=== PATIENT | female | born 1945 | race Caucasian/White ===

== ENCOUNTER 2016-10-16 05:34 | Day surgery (SDC) | payer MEDICARE, OTHER ==
[2016-10-08 10:48] LABS: ABSOLUTE EOSINOPHILS # (AUTO) 0.1 10^3/uL (0.0-0.6); ABSOLUTE LYMPHOCYTES (AUTO) 2.7 10^3/uL (0.5-4.7); ABSOLUTE MONOCYTES (AUTO) 0.8 10^3/uL (0.1-1.4); ABSOLUTE NEUT (AUTO) 4.5 10^3/uL (1.7-8.2); BASOPHILS % (AUTO) 0.3 % (0-2); EOSINOPHILS % (AUTO) 1.2 % (0-6); HEMATOCRIT 40.8 % (36.0-47.0); HEMOGLOBIN 13.6 g/dL (12.0-15.5); LYMPHOCYTES % (AUTO) 33.4 % (13-45); MEAN CORPUSCULAR HEMOGLOBIN 32.2 pg (27.0-33.4); MEAN CORPUSCULAR HGB CONC 33.4 g/dL (32.0-36.0); MEAN CORPUSCULAR VOLUME 96 fl (80-97); RED BLOOD COUNT 4.24 10^6/uL (3.72-5.28); RED CELL DISTRIBUTION WIDTH 13.3 % (11.5-14.0); SEGMENTED NEUTROPHILS % (AUTO) 55.1 % (42-78); WHITE BLOOD COUNT 8.1 10^3/uL (4.0-10.5)
[2016-10-08 11:23] LABS: ANION GAP 12 (5-19); BLOOD UREA NITROGEN 16 mg/dL (7-20); CALCIUM 10.1 mg/dL (8.4-10.2); CARBON DIOXIDE 27 mmol/L (22-30); CHLORIDE 106 mmol/L (98-107); CREATININE RESULT 1.12 mg/dL (0.52-1.25); GLUCOSE 95 mg/dL (75-110); POTASSIUM 5.6 mmol/L (3.6-5.0); SODIUM 144.5 mmol/L (137-145)
[~2016-10-16 05:34] MED LIST: CEFAZOLIN 2 GM/D5W RTU 2 GM/50 ML RTUPB IV PRN; LACTATED RINGERS 1000 ML IV PRN; LIDOCAINE 0.5% INJ-PF (5 MG/ML) 50 ML SDV SUBCUT PRN
[2016-10-16] MEDS ORDERED: FENTANYL CITRATE INJ/PF 250 MCG/5 ML AMPULE ONE (06:52)
[2016-10-16] MEDS ORDERED: EPHEDRINE SULFATE INJ 50 MG/1 ML AMPULE ONE (06:53)
[2016-10-16] MEDS ORDERED: MIDAZOLAM 2 MG/2 ML INJ ONE (06:53)
[2016-10-16] MEDS ORDERED: PROPOFOL INJ 200 MG/20 ML VIAL IV ONE (06:53)
[2016-10-16] MEDS ORDERED: ACETAMINOPHEN 100 ML IV ONE (06:53)
[2016-10-16] MEDS ORDERED: BUPIVACAINE HCL 0.5 % INJ/PF 30 ML SDV ONE (07:12)
[2016-10-16] MEDS ORDERED: EPINEPHRINE INJ/PF 1 MG/1 ML AMPULE ONE (07:12)
[2016-10-16] MEDS ORDERED: MEPERIDINE HCL/PF INJ 25 MG/1 ML DISP.SYRIN IV PRN (08:40)
[2016-10-16] MEDS ORDERED: DIPHENHYDRAMINE HCL 50 MG/ML VIAL IV PRN (08:40)
[2016-10-16] MEDS ORDERED: FENTANYL CITRATE INJ/PF 100 MCG/2 ML AMPUL IV PRN ×3 (08:40)
[2016-10-16] MEDS ORDERED: MORPHINE SULFATE 10 MG/ML INJ IV PRN (08:40)
[2016-10-16] MEDS ORDERED: OXYCODONE-ACETAMINOPHEN 5-325 MG TABLET PO PRN ×4 (08:40→11:07)
[2016-10-16] MEDS ORDERED: ONDANSETRON HCL INJ/PF 4 MG/2 ML SDV IV PRN (08:40)
[2016-10-16] MEDS ORDERED: PROMETHAZINE HCL INJ 25 MG/1 ML VIAL IV PRN ×2 (08:40)
[2016-10-16] MEDS: FENTANYL CITRATE INJ/PF 100 MCG/2 ML AMPUL ONE ×2 (09:46→09:55)
--- NOTE | 2016-10-16 09:54 | Operative Report ---
Operative Report DATE OF SURGERY: 10/16/16 PREOPERATIVE DIAGNOSIS: Right rotator cuff tear and degenerative type II SLAP tear. 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 Extensive debridement with rotator cuff repair and biceps tenodesis. 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 PROCEDURE: IMPLANTS: 2 4.75 mm bio composite swivel lock DESCRIPTION OF PROCEDURE: Patient was brought to the operating room placed in supine position. After successfully induced and intubated the patient patient was placed in the beachchair position the head and endotracheal tube was secured appropriately. The right shoulder was prepped and draped in a normal surgical fashion. A timeout was done identifying the right shoulder as the correct site. After inflating the glenohumeral joint with sterile saline solution an 11 blade was used to establish the posterior portal. The arthroscope was introduced and return of fluid was seen showing that we successfully penetrated the glenohumeral joint. With the use of spinal needle we're able to ebenezer the anterior portal and using an 11 blade able to establish anterior portal. A cannula was introduced through the anterior portal. At this point diagnostic scope was done. Patient had early arthritis with grade 3 and grade 4 changes diffusely in the glenoid and humeral head. Also noted patient had diffuse degeneration of the labrum both anterior superior and posteriorly. Using a probe I was able to lift off the superior labrum anterior to posterior portion where the attachment of the long head of the biceps was. Noted that the patient had a type II tear and also had partial tearing at the anchor of the long head of the biceps. Was then made to do arthroscopic biceps tenodesis. The biceps with a spinal needle and percutaneously tagged it with a Prolene. Due to use arthroscopic scissors to do my tenotomy of the long head of the biceps. I proceeded to use a 4.0 mm shaver then to do extensive debridement of the labrum, glenoid, humeral head. Debridement of the entire labrum and intact glenoid and portion of the humeral head was done. Satisfied with the amount of debridement I then turned to the rotator cuff which showed a near high-grade full-thickness tear with a pinpoint hole through the tear making a complete tear. I made sure there was no loose bodies. A lateral portal was established 11 blade. 4.0mm shaver was introduced and was used to prepare the tear and made a bleeding bed of bone for preparation of anchor placement. Once I was satisfied with the preparation I then redirected my scope into the subacromial space. Bursectomy was done using a shaver and radiofrequency ablator. I was able to identify the Prolene and exposed to be long head biceps subacromial space. I then was able to use a meniscal elevator and make a full-thickness tear of the larger for anchor placement. 4.0 mm shaver was used to debride the tendon edges. A percutaneous incision was then just adjacent to the acromion on the lateral aspect. Through this percutaneous hole the awl was used to prepare the hole for an anchor. Broughton was percutaneously placed flushed with the bone just adjacent to the articular margin. Sutures were passed through the anterior portal for proper suture management. With the use of the scorpion and I proceeded to pass the sutures through the rotator cuff tendon with proper suture management was able to pass the strands either through percutaneous hole or the anterior portal. Once I was satisfied with placement of all my sutures I then proceeded to do my arthroscopic knots FiberWire strands. Fiber tape would not tied but used to secure the rotator cuff laterally my lateral row. At this point the strands were used to do our lateral row. Bicomposite swivel lock was used and the lateral aspect of the humerus was then cleaned off with a shaver and frequency of later. Once identified once I was placement I proceeded to use my awl to do my hole. This this point the sutures were adequately tensioned and inserted and secured, securing and increasing the footprint of the rotator cuff repair. Remaining strands were cut with the arthroscopic cutter. Point I turned my attention to my arthroscopic biceps tenodesis portion of the case. I used the scope into feed FiberWire through the long head of the biceps. After doing this step I then used the same to strands and passed it through the rotator cuff tear anteriorly. I did arthroscopic knots to secure the biceps to the rotator cuff repair anteriorly. I used arthroscopic cutter to cut and the nose strands behind. Final pictures were taking showing my repair and tenodesis. At this point fluid from the shoulder was removed camera and instruments were all removed. I proceeded to close my portal sites with 3-0 nylon. Xeroform 4 x 4 dressing followed by ABDs pads and Medipore tape was applied. Patient was placed in a sling and returned to supine position where he was successfully extubated and taken to PACU in stable condition.
[2016-10-16] MEDS ORDERED: ATROPINE SULFATE INJ 1 MG/10 ML DISP.SYRIN IV ONE (09:55)
--- NOTE | 2016-10-16 10:00 | PDOC DISCHARGE SUMMARY ---
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 Patient instructed to remove dressing in 4 days then can shower and apply Band- Aids as needed. Patient to wear sling for comfort but okay to remove for shower and pendulum exercises. Pendulum exercises are instructed to be done 3 times a day ideally with breakfast, lunch, dinners and showers. Patient instructed to call if there is any signs of redness or drainage fevers or chills. Prescriptions: Ondansetron HCl [Zofran 4 mg Tablet] 1 - 2 tab PO Q8HP PRN #30 tablet PRN Reason: Oxycodone HCl/Acetaminophen [Percocet 5-325 mg Tablet] 1 - 2 tab PO ASDIR PRN # 60 tablet PRN Reason: Discharge Diet: As Tolerated Respiratory Treatments at Home: Deep Breathing/Coughing Discharge Activity: No Driving, No Lifting/Push/Pulling, No tub bath Home Care Assistance: None Needed Report the Following to Your Physician Immediately: Shortness of Breath, Fever over 101 Degrees, Unusual Bleeding, Redness, Swelling, Warmth, Drainage-Yellow, Drainage-[place], Drainage-Green, Drainage-Foul Smelling
[2016-10-16 12:04] VITALS: BP 110/55
[2016-10-16] MEDS ORDERED: DEXAMETHASONE SOD PHOSPHATE INJ 4 MG/1 ML VIAL ONE (14:06)
[2016-10-16] MEDS ORDERED: VECURONIUM BROMIDE INJ 10 MG VIAL IV ONE (14:06)
[2016-10-16] MEDS ORDERED: PHENYLEPHRINE HCL INJ/PF 10 MG/1 ML SDV ONE (14:06)
[2016-10-16] MEDS ORDERED: GLYCOPYRROLATE INJ 0.4 MG/2 ML VIAL ONE (14:06)
[2016-10-16] MEDS ORDERED: LIDOCAINE 2% INJ-PF (20 MG/ML) 10 ML AMPUL ONE (14:06)
[2016-10-16] MEDS ORDERED: METOCLOPRAMIDE HCL INJ/PF 10 MG/2 ML SDV ONE (14:06)
[2016-10-16] MEDS ORDERED: SUCCINYLCHOLINE CHLORIDE INJ 200 MG/10 ML VIAL ONE (14:06)
[2016-10-16] MEDS ORDERED: ONDANSETRON HCL INJ/PF 4 MG/2 ML SDV ONE (14:06)
== END 2016-10-16 12:00 | disposition home or self-care (01) ==
LOC: OROUT 05:34
PROVIDERS: ATTEND Orthopaedic Surgery
PROC: 0LS14ZZ Reposition Right Shoulder Tendon, Percutaneous Endoscopic Approach (ICD-10-PCS; 2016-10-16)
PROC: 0LQ14ZZ Repair Right Shoulder Tendon, Percutaneous Endoscopic Approach (ICD-10-PCS; principal; 2016-10-16 07:30)
DX: M75.121 Complete rotator cuff tear or rupture of right shoulder, not specified as traumatic (principal); S43.431A Superior glenoid labrum lesion of right shoulder, initial encounter; X58.XXXA Exposure to other specified factors, initial encounter; M94.211 Chondromalacia, right shoulder; I10 Essential (primary) hypertension; E05.90 Thyrotoxicosis, unspecified without thyrotoxic crisis or storm; F17.210 Nicotine dependence, cigarettes, uncomplicated; E66.9 Obesity, unspecified; Z68.41 Body mass index [BMI] 40.0-44.9, adult; Z79.899 Other long term (current) drug therapy; Z79.84 Long term (current) use of oral hypoglycemic drugs; Z79.891 Long term (current) use of opiate analgesic; Z85.41 Personal history of malignant neoplasm of cervix uteri
CPT/HCPCS: 36415 ×2; 84132; 85025; 80048; 29827; 29828; C1713; J2250; J0461; J1100; J0171; J3010 ×2; J3490 ×2; J2765; A9270; J2370; J0330; J2405; J2704; J0690; J0131; 1630